=== PATIENT | male | born 1935 | race Caucasian/White ===

== ENCOUNTER 2017-02-17 23:48 | Inpatient (IN) | payer OTHER, MEDICARE ==
[~2017-02-17] VITALS: Ht 175.3 cm; Wt 85.9 kg
[~2017-02-17 23:48] MED LIST: ALEVE220 MG PO; APRESOLINE25 MG PO; ASCORBIC ACID500 M3 PO; COLACE100 MG PO; ENDOCET 5-3251 EACH PO; FOLIC ACID1 MG PO; GLYBURIDE5 MG PO; LEVOTHYROXINE150 MCG PO; LIDODERM 5% P1 PATCH TD; LISINOPRIL10 MG PO; LISINOPRIL20 MG PO; LOVENOX40 MG/0.4 SC; METFORMIN HCL500 MG PO; MILK OF MAGNESI10 ML PO; NEXIUM40 MG PO; NOVOLOG PE100 UNITS/ SC; POLYETHYLENE GL17 GM PO; REGLAN10 MG PO; SENOKOT S,PE1 TABLET PO; THERAGRAN1 TABLET PO; TYLENOL REGULA325 MG PO; VITAMIN B122500 MCG PO; ZOFRAN4 MG/2 ML IV
[2017-02-18 01:08] LABS: HEMATOCRIT 34.3 % (38.0-50.0); MCH 31.3 PG (29.0-34.0); MCV 89.6 FL (86-99); MEAN PLAT.VOLUME 10.3 uM^3 (9.0-12.4); PLATELET COUNT 252 K/uL (156-360); RBC DIS.WIDTH-CV 13.2 % (11.8-14.6); RBC DIS.WIDTH-SD 43.5 % (39-53); RED BLOOD COUNT 3.83 M/uL (4.00-5.50); WHITE BLOOD COUNT 15.2 K/uL (4.1-10.2)
[2017-02-18 01:20] LABS: CHLORIDE 100 mEq/L (99-109); POTASSIUM 3.8 mEq/L (3.7-5.4); SODIUM 130 mEq/L (136-147)
[2017-02-18 01:22] LABS: GLUCOSE 366 mg/dL (70-99)
[2017-02-18 01:23] LABS: ANION GAP 12 MEQ/L (2-14)
[2017-02-18 01:26] LABS: ALKALINE PHOSPHATASE 127 IU/L (3-129); GFR ESTIMATE (CALCULATED) 37 mL/min/
[2017-02-18 01:27] LABS: UREA NITROGEN (BUN) 51 mg/dL (9-23)
[2017-02-18 01:28] LABS: DIRECT BILIRUBIN 0.8 mg/dL (0.0-0.3)
[2017-02-18 01:29] LABS: LIPASE 3 U/L (1.0-51.0)
[2017-02-18 06:04] VITALS: BP 169/80
[2017-02-18 06:46] LABS: POINT-OF-CARE METER ID UU14149397
[2017-02-18 07:28] VITALS: BP 160/76
[2017-02-18 07:51] LABS: EOSINOPHIL (%) 0.2 % (0-5); HEMATOCRIT 33.4 % (38.0-50.0); IMMATURE GRANULOCYTE (%) 0.8 % (0.0-0.7); IMMATURE GRANULOCYTE COUNT 0.1 K/uL; INSTRUMENT ABS NEUTROPHIL CT 11.9 K/uL; LYMPHOCYTE COUNT 0.8 K/uL (1.0-2.8); MCH 32.5 PG (29.0-34.0); MCHC 35.3 G/DL (30.0-36.0); MEAN PLAT.VOLUME 10.4 uM^3 (9.0-12.4); MONOCYTE (%) 3.9 % (3-12); MONOCYTE COUNT 0.5 K/uL (0-0.8); NEUTROPHIL (%) 88.8 % (45-76); NEUTROPHIL COUNT 11.9 K/uL (1.8-6.4); PLATELET COUNT 236 K/uL (156-360); RBC DIS.WIDTH-CV 13.3 % (11.8-14.6); RBC DIS.WIDTH-SD 45.6 % (39-53); RED BLOOD COUNT 3.63 M/uL (4.00-5.50); WHITE BLOOD COUNT 13.4 K/uL (4.1-10.2)
[2017-02-18 08:00] LABS: INTER. NORMALIZED RATIO 1.3; PROTHROMBIN TIME 13.5 (9.2-11.2); PTT 34.1 (25-32)
[2017-02-18 08:33] LABS: ALKALINE PHOSPHATASE 123 IU/L (3-129); ANION GAP 7 MEQ/L (2-14); CHLORIDE 102 MEQ/L (99-109); GFR ESTIMATE (CALCULATED) 45 mL/min/; GLUCOSE 224 mg/dL (70-99); SAMPLE HEMOLYSIS CHECK 0; SAMPLE ICTERIC CHECK 0; SAMPLE LIPEMIA CHECK 0; SODIUM 133 MEQ/L (136-147); TOTAL BILIRUBIN 1.7 MG/DL (0.0-1.0); UREA NITROGEN (BUN) 46 mg/dL (9-23)
[2017-02-18 10:56] VITALS: BP 171/72
[2017-02-18 16:01] VITALS: BP 1200/58
[2017-02-18 16:34] LABS: POINT-OF-CARE METER ID UU14188577
[2017-02-18 19:38] VITALS: BP 117/78
[2017-02-18 21:44] LABS: POINT-OF-CARE METER ID UU14188577
[2017-02-18 21:58] LABS: POINT-OF-CARE METER ID UU13113778
[2017-02-19 00:30] VITALS: BP 136/65
[2017-02-19 03:50] VITALS: BP 122/60
[2017-02-19 06:24] LABS: POINT-OF-CARE METER ID UU14188577
[2017-02-19 06:31] LABS: EOSINOPHIL (%) 0.2 % (0-5); HEMATOCRIT 32.2 % (38.0-50.0); IMMATURE GRANULOCYTE COUNT 0.1 K/uL; INSTRUMENT ABS NEUTROPHIL CT 11.3 K/uL; LYMPHOCYTE COUNT 1.1 K/uL (1.0-2.8); MCH 31.7 PG (29.0-34.0); MCHC 34.5 G/DL (30.0-36.0); MEAN PLAT.VOLUME 10.5 uM^3 (9.0-12.4); MONOCYTE COUNT 0.8 K/uL (0-0.8); NEUTROPHIL (%) 84.4 % (45-76); NEUTROPHIL COUNT 11.3 K/uL (1.8-6.4); PLATELET COUNT 224 K/uL (156-360); RBC DIS.WIDTH-CV 13.4 % (11.8-14.6); RBC DIS.WIDTH-SD 45.5 % (39-53); WHITE BLOOD COUNT 13.4 K/uL (4.1-10.2)
[2017-02-19 06:53] LABS: POINT-OF-CARE METER ID UU14188577
[2017-02-19 07:00] LABS: ALKALINE PHOSPHATASE 108 IU/L (3-129); ANION GAP 8 MEQ/L (2-14); CHLORIDE 105 MEQ/L (99-109); GFR ESTIMATE (CALCULATED) 57 mL/min/; MAGNESIUM 1.9 mg/dl (1.3-2.7); POTASSIUM 3.3 MEQ/L (3.7-5.4); SAMPLE HEMOLYSIS CHECK 0; SAMPLE ICTERIC CHECK 0; SAMPLE LIPEMIA CHECK 0; SODIUM 135 MEQ/L (136-147); UREA NITROGEN (BUN) 29 mg/dL (9-23)
[2017-02-19 07:08] LABS: GLUCOSE 45 mg/dL (70-99); TOTAL BILIRUBIN 1.2 MG/DL (0.0-1.0)
[2017-02-19 08:03] LABS: Estimated Average Glucose 203 mg/dL (70-123); HEMOGLOBIN A1c (GLYCOHEMOGLOB) 8.7 % HGB (Below 5.7)
[2017-02-19 08:30] VITALS: BP 143/68
[2017-02-19 11:39] VITALS: BP 145/69
[2017-02-19 11:45] LABS: POINT-OF-CARE METER ID UU14188577
[2017-02-19] MEDS ORDERED: CYANOCOBALAM1000 MCG PO (12:24)
[2017-02-19] MEDS ORDERED: SENOKOT S,PE1 TABLET PO (12:26)
[2017-02-19] MEDS ORDERED: MIRALAX17 GM PO (12:26)
[2017-02-19 16:01] VITALS: BP 148/70
[2017-02-19 16:49] LABS: POINT-OF-CARE METER ID UU14188577
[2017-02-19 20:29] VITALS: BP 158/90
[2017-02-20 00:16] VITALS: BP 168/77
[2017-02-20 03:29] VITALS: BP 118/75
[2017-02-20 06:33] LABS: POINT-OF-CARE METER ID UU14188577
[2017-02-20 07:01] LABS: BASOPHIL COUNT 0.1 K/uL (0-0.1); EOSINOPHIL (%) 1.4 % (0-5); EOSINOPHIL COUNT 0.1 K/uL (0-0.3); HEMATOCRIT 32.1 % (38.0-50.0); IMMATURE GRANULOCYTE (%) 1.3 % (0.0-0.7); IMMATURE GRANULOCYTE COUNT 0.1 K/uL; INSTRUMENT ABS NEUTROPHIL CT 6.8 K/uL; LYMPHOCYTE COUNT 1.3 K/uL (1.0-2.8); MCH 31.8 PG (29.0-34.0); MCHC 34.6 G/DL (30.0-36.0); MEAN PLAT.VOLUME 10.7 uM^3 (9.0-12.4); MONOCYTE (%) 8.1 % (3-12); MONOCYTE COUNT 0.7 K/uL (0-0.8); NEUTROPHIL (%) 74.8 % (45-76); NEUTROPHIL COUNT 6.8 K/uL (1.8-6.4); PLATELET COUNT 237 K/uL (156-360); RBC DIS.WIDTH-CV 13.4 % (11.8-14.6); RBC DIS.WIDTH-SD 45.3 % (39-53); RED BLOOD COUNT 3.49 M/uL (4.00-5.50); WHITE BLOOD COUNT 9.1 K/uL (4.1-10.2)
[2017-02-20 07:16] LABS: ALKALINE PHOSPHATASE 88 IU/L (3-129); ANION GAP 9 MEQ/L (2-14); CHLORIDE 105 MEQ/L (99-109); GFR ESTIMATE (CALCULATED) > 59 mL/min/; MAGNESIUM 1.8 mg/dl (1.3-2.7); POTASSIUM 3.8 MEQ/L (3.7-5.4); SAMPLE HEMOLYSIS CHECK 0; SAMPLE ICTERIC CHECK 0; SAMPLE LIPEMIA CHECK 0; SODIUM 137 MEQ/L (136-147); TOTAL BILIRUBIN 1.1 MG/DL (0.0-1.0); UREA NITROGEN (BUN) 18 mg/dL (9-23)
[2017-02-20 07:22] LABS: GLUCOSE 222 mg/dL (70-99)
[2017-02-20 07:48] VITALS: BP 150/87
[2017-02-20 11:07] VITALS: BP 179/83
[2017-02-20] MEDS ORDERED: TRAMADOL HCL50 MG PO (11:29)
[2017-02-20] MEDS ORDERED: AUGMENTIN875 MG PO (11:31)
[2017-02-20 12:16] LABS: POINT-OF-CARE METER ID UU14188577
== END 2017-02-20 13:50 | disposition home health service (06) | DRG 446 ==
LOC: EME 23:48 → 3EAST 02-18 04:42 → EDOF 02-18 04:42 → 3EAST 02-18 05:51
PROVIDERS: Emergency Medicine; Surgery
PROC: 0F9430Z Drainage of Gallbladder with Drainage Device, Percutaneous Approach (ICD-10-PCS; principal; 2017-02-18)
DX: K81.0 Acute cholecystitis (principal); E11.65 Type 2 diabetes mellitus with hyperglycemia; E78.5 Hyperlipidemia, unspecified; I10 Essential (primary) hypertension; E89.0 Postprocedural hypothyroidism; J45.909 Unspecified asthma, uncomplicated; K21.9 Gastro-esophageal reflux disease without esophagitis; Z96.653 Presence of artificial knee joint, bilateral; Z87.891 Personal history of nicotine dependence; Z79.84 Long term (current) use of oral hypoglycemic drugs
CPT/HCPCS: 49405; 74176; 80048; 80053; 80076; 81003; 82948; 83036; 83690; 83735; 84100; 85025; 85027; 85610; 85730; 87040; 87070; 87075; 87076; 87205; 99281; 99285; C1729; C1769; J1650; J1815; J2405; J2543; J3010; J7030; J7050; J7120

== ENCOUNTER → 2017-03-20 | Outpatient (CLI) | payer MEDICARE ==
[~2017-03-20] MED LIST changes: +AUGMENTIN875 MG PO; +CYANOCOBALAM1000 MCG PO; +GLUCOPHAGE500 MG PO; +MIRALAX17 GM PO; +TRAMADOL HCL50 MG PO; +TYLENOL EXTRA500 MG PO
== END | disposition home or self-care (01) ==
LOC: CDC 08:41
DX: K80.10 Calculus of gallbladder with chronic cholecystitis without obstruction (principal); R94.31 Abnormal electrocardiogram [ECG] [EKG]
CPT/HCPCS: 93000

== ENCOUNTER 2017-03-24 09:51 | Emergency (ER) | payer OTHER, MEDICARE ==
[~2017-03-24] VITALS: Ht 175.3 cm; Wt 96.0 kg
[2017-03-24 10:58] VITALS: BP 151/81
== END 2017-03-24 10:58 | disposition home or self-care (01) ==
LOC: EME 09:51
DX: T85.520A Displacement of bile duct prosthesis, initial encounter (principal); K21.9 Gastro-esophageal reflux disease without esophagitis; J45.909 Unspecified asthma, uncomplicated; Z96.653 Presence of artificial knee joint, bilateral; Z87.891 Personal history of nicotine dependence
CPT/HCPCS: 99281; 99284

== ENCOUNTER 2017-03-27 05:15 | Day surgery (SDC) | payer OTHER, MEDICARE ==
[~2017-03-27] VITALS: Ht 175.3 cm; Wt 88.9 kg
[2017-03-27 06:17] LABS: POINT-OF-CARE METER ID UU13113694
[2017-03-27 06:19] VITALS: BP 135/73
[2017-03-27 11:28] LABS: POINT-OF-CARE METER ID UU13113675
[2017-03-27 12:01] VITALS: BP 195/93
[2017-03-27 15:45] VITALS: BP 160/90
[2017-03-27 18:00] VITALS: BP 156/86
[2017-03-27 19:17] VITALS: BP 149/69
[2017-03-27 23:03] VITALS: BP 168/81
[2017-03-28 03:22] VITALS: BP 174/79
[2017-03-28 06:16] LABS: POINT-OF-CARE METER ID UU14208750
[2017-03-28 06:56] VITALS: BP 148/66
[2017-03-28 07:11] LABS: EOSINOPHIL (%) 0.1 % (0-5); HEMATOCRIT 36.8 % (38.0-50.0); IMMATURE GRANULOCYTE (%) 0.5 % (0.0-0.7); IMMATURE GRANULOCYTE COUNT 0.1 K/uL; LYMPHOCYTE COUNT 0.9 K/uL (1.0-2.8); MCH 31.4 PG (29.0-34.0); MCHC 34.2 G/DL (30.0-36.0); MCV 91.8 FL (86-99); MEAN PLAT.VOLUME 9.8 uM^3 (9.0-12.4); MONOCYTE COUNT 0.8 K/uL (0-0.8); NEUTROPHIL (%) 86.6 % (45-76); PLATELET COUNT 232 K/uL (156-360); RBC DIS.WIDTH-CV 13.5 % (11.8-14.6); RBC DIS.WIDTH-SD 45.2 % (39-53); RED BLOOD COUNT 4.01 M/uL (4.00-5.50); WHITE BLOOD COUNT 13.8 K/uL (4.1-10.2)
[2017-03-28 07:36] LABS: ALKALINE PHOSPHATASE 88 IU/L (3-129); ANION GAP 7 MEQ/L (2-14); CHLORIDE 99 MEQ/L (99-109); GFR ESTIMATE (CALCULATED) 57 mL/min/; GLUCOSE 183 mg/dL (70-99); MAGNESIUM 1.6 mg/dl (1.3-2.7); POTASSIUM 4.5 MEQ/L (3.7-5.4); SAMPLE HEMOLYSIS CHECK 0; SAMPLE ICTERIC CHECK 0; SAMPLE LIPEMIA CHECK 0; SODIUM 134 MEQ/L (136-147); TOTAL BILIRUBIN 1.5 MG/DL (0.0-1.0); UREA NITROGEN (BUN) 17 mg/dL (9-23)
[2017-03-28] MEDS ORDERED: NORCO 5/3251 TABLET PO (09:25)
[2017-03-28 11:46] VITALS: BP 155/70
== END 2017-03-28 15:17 | disposition home or self-care (01) ==
LOC: SDC 05:15 → 2SOUTH 10:52 → 2EAST 10:52 → ENRESERV 10:57 → 2EAST 12:00 → SDC 13:48 → 2EAST 03-28 15:17
PROVIDERS: Surgery
DX: K81.0 Acute cholecystitis (principal); E03.9 Hypothyroidism, unspecified; K40.90 Unilateral inguinal hernia, without obstruction or gangrene, not specified as recurrent
CPT/HCPCS: 80053; 82948; 83735; 84100; 85025; 87070; 87075; 87205; 88304; G0378; J0330; J1170; J1650; J2405; J2710; J3010; J7120